=== PATIENT | female | born 1965 | race Caucasian/White ===

== ENCOUNTER 2017-02-03 12:49 | Outpatient (CLI) ==
[2015-08-02 13:25] VITALS: BMI 32.3
--- NOTE | 2017-02-03 13:47 | DI ---
EXAM: Three views of the right hand. History: Right hand pain. Findings: No acute fracture or dislocation. No abnormal calcifications or radiopaque foreign aamir s. Joint spaces are relatively preserved. Impression: No acute osseous abnormality and no significant degenerative joint disease.
--- NOTE | 2017-02-03 13:48 | DI ---
EXAM: Three views of the left hand. History: Left hand pain. Findings: No acute fracture or dislocation. No abnormal calcifications or radiopaque foreign aamir s. Joint spaces are relatively preserved. Impression: Unremarkable exam.
== END 2017-02-03 12:50 | disposition home or self-care (01) ==
LOC: RAD 12:49
PROVIDERS: ATTEND Nurse Practitioner Family
DX: M79.641 Pain in right hand (principal)

== ENCOUNTER 2017-07-30 21:36 | Emergency (ER) ==
[2017-07-30 21:46] VITALS: BP 160/90; TEMP 97.5; BMI 33.9
[2017-07-30] MEDS ORDERED: DECADRON 4 MG/ML SDV IM STA (22:02)
[2017-07-30] MEDS ORDERED: TORADOL IM STA (22:02)
[2017-07-30] MEDS ORDERED: NORFLEX IM STA (22:02)
--- NOTE | 2017-07-30 22:22 | DI ---
Exam: Right ankle 3 views History: Injury and pain Findings/Impression: No acute heather or articular abnormality. There is a 7 mm per on the plantar surf jarod of the calcaneus.
--- NOTE | 2017-07-30 22:25 | DI ---
Exam: Right foot three-view HISTORY: Injury and pain Findings / impression: No acute bony or articular abnormality is seen. There is a 5 x 2 mm bony den sity over the dorsum of the base of the metatarsals most likely chronic. Spurring on the plantar stephanie face of the calcaneus.
[2017-07-30 22:27] LABS: BASOPHILS % (AUTO) 0.5 % (0.0-3.0); EOSINOPHILS # (AUTO) 0.1 K/ul (0.0-0.7); EOSINOPHILS % (AUTO) 1.5 % (0.0-7.0); HEMATOCRIT 36.9 % (37.0-47.0); HEMOGLOBIN 13.1 g/dl (12.0-16.0); IMMATURE GRANULOCYTE % (AUTO) 0.5 % (0.0-5.0); LYMPHOCYTES % (AUTO) 32.1 (10.0-50.0); MEAN CORPUSCULAR HEMOGLOBIN 30.9 pg (27.0-31.0); MEAN CORPUSCULAR HGB CONC 35.5 (31.8-35.4); MONOCYTES # (AUTO) 0.5 K/uL (0.4-2.0); MONOCYTES % (AUTO) 7.8 (0-10); NEUTROPHILS # (AUTO) 3.6 K/ul (2.0-6.9); NEUTROPHILS % (AUTO) 57.6; PLATELET COUNT 203 10^3/uL (140-440); RED BLOOD COUNT 4.24 10^6/ul (4.20-5.40); WHITE BLOOD COUNT 6.16 K/ul (4.6-10.2)
[2017-07-30 22:46] LABS: ALBUMIN 3.9 g/dL (3.4-5.0); ALBUMIN/GLOBULIN RATIO 1.3; ANION GAP 15.7; BILIRUBIN,TOTAL 0.39 mg/dL (0.00-1.20); BUN/CREATININE RATIO 20.27; CALCIUM 9.6 mg/dL (8.2-10.2); CREATININE 0.74 mg/dL (0.60-1.30); MAGNESIUM 2.2 mg/dL (1.7-2.2); POTASSIUM 3.7 mmol/L (3.5-5.10); TOTAL PROTEIN 6.9 g/dL (6.4-8.2); URIC ACID 5.1 mg/dL (2.4-6.0)
[2017-07-30 22:58] LABS: ESR INTERNAL QC INTERNAL QC VALID
[2017-07-30 22:59] LABS: ERYTHROCYTE SEDIMENTATION RATE 6 mm/hr (0-20)
--- NOTE | 2017-07-30 23:15 | ED.PDOC ---
General ED Provider: Dr. JOANNA FRAZIER-ER Chief Complaint: Extremity Swelling/Pain Stated Complaint: i was sitting in a recliner and then my foot and ankle started hurting and i couldnt put any weight on it Time Seen by Physician: 21:40 Mode of Arrival: Walk-In Information Source: Patient, Family Exam Limitations: No limitations Primary Care Provider: VENKATA CHERRY Nursing and Triage Documentation Reviewed and Agree: Yes Musculoskeletal Complaint Exam - Ankle/Foot Complaint/Exam Location of Injury: Reports: Right, Ankle, Foot Mechanism of Injury: Reports: No known trauma Onset/Duration: 30 min Symptoms Are: Reports: Still present Onset of Pain: Reports: Immediate Initial Severity: Mild Current Severity: Mild Location: Reports: Discrete (right ankle foot) Character: Reports: Dull, Aching, Spasmodic Alleviating: Reports: None Aggravating: Reports: Movement, Weight bearing Able to Bear Weight: No Associated Signs and Symptoms: Reports: Bruising. Denies: Swelling, Redness, Fever, Weakness, Numbness, Tingling Related History: Reports: Similar episode Gout Risk Factors: Reports: >40 years old Related Surgical History: Reports: None Lower Extremity Findings: Present: Tenderness, Limited range of motion Achilles Tendon Abnormality: No Tenderness: Present: Lateral malleolus, Midfoot Limited Range of Motion: Present: Inversion, Eversion Differential Diagnosis: Sprain, Strain, Bursitis Review of Systems - Review Of Systems Constitutional: Reports: No symptoms Eyes: Reports: No symptoms Ears, Nose, Mouth, Throat: Reports: No symptoms Respiratory: Reports: No symptoms Cardiac: Reports: No symptoms GI: Reports: No symptoms : Reports: No symptoms Musculoskeletal: Reports: Joint pain, Muscle pain Skin: Reports: No symptoms Neurological: Reports: No symptoms Endocrine: Reports: No symptoms Hematologic/Lymphatic: Reports: No symptoms All Other Systems: Reviewed and Negative Past Medical History - Past Medical History Previously Healthy: Yes Endocrine: Reports: None Cardiovascular: Reports: Hypertension Respiratory: Reports: None Hematological: Reports: None Gastrointestinal: Reports: None Genitourinary: Reports: None Neuro/Psych: Reports: None Musculoskeletal: Reports: Other Cancer: Reports: None Last Menstrual Period: PT HAS HAD A HYSTERECTOMY - Surgical History General Surgical History: Reports: None - Family History Family History: Reports: Unknown - Social History Smoking Status: Former smoker Hx Substance Use: No Alcohol Screening: None Lives: With family - Immunizations Tetanus Shot up to Date: (UNKNOWN) Physical Exam - Physical Exam Appearance: Well-appearing, No pain distress, Well-nourished Pain Distress: Mild Eyes: ROHINI ENT: Ears normal, Nose normal, Oropharynx normal Neck: Supple Respiratory: Airway patent, Breath sounds clear, Breath sounds equal, Respirations nonlabored Cardiovascular: RRR, Pulses normal, No rub, No murmur GI/: Soft, Nontender, No masses, Bowel sounds normal, No Organomegaly Musculoskeletal: Limited ROM Skin: Warm, Dry, Normal color Neurological: Sensation intact Psychiatric: Affect appropriate, Mood appropriate, Anxious Interpretation - Radiology Interpretation Radiology Interpretation By: Radiologist Radiology Results: Negative Re-Evaluation - Re-Evaluation Time of Re-Evaluation: 23:19 Status: Improved (moving much better--able to put weight now on the foot) Vital Signs Stable: Yes Pain Level: 2 Appearance: NAD Lungs: Clear Skin: Warm and Dry Neuro: Alert and Oriented X3 CV: RRR Critical Care Note - Critical Care Note Total Time (mins): 0 Course - Course Hematology/Chemistry: 07/30/17 22:23 07/30/17 22:23 Orders, Labs, Meds: Lab Review 07/30/17 07/30/17 22:23 22:23 WBC 6.16 RBC 4.24 Hgb 13.1 Hct 36.9 L MCV 87.0 MCH 30.9 MCHC 35.5 H RDW Coeff of Mukesh 12.2 Plt Count 203 Immature Gran % (Auto) 0.5 Neut % (Auto) 57.6 Lymph % (Auto) 32.1 [place] % (Auto) 7.8 Eos % (Auto) 1.5 Baso % (Auto) 0.5 Immature Gran # (Auto) 0.0 Neut # 3.6 Lymph # 2.0 [place] # 0.5 Eos # 0.1 Baso # 0.0 ESR 6 Sodium 144 Potassium 3.7 Chloride 110 H Carbon Dioxide 22 Anion Gap 15.7 BUN 15 Creatinine 0.74 Estimated GFR (MDRD) 82.00 BUN/Creatinine Ratio 20.27 Glucose 155 H Uric Acid 5.1 Calcium 9.6 Magnesium 2.2 Total Bilirubin 0.39 AST 17 ALT 16 Alkaline Phosphatase 72 Total Protein 6.9 Albumin 3.9 Globulin 3.0 Albumin/Globulin Ratio 1.30 Orders Category Date Time Status CBC W/ AUTO DIFF Stat LAB 07/30/17 22:23 Completed COMPREHENSIVE METABOLIC PANEL Stat LAB 07/30/17 22:23 Completed CRP [C-REACTIVE PROTEIN] Stat LAB 07/30/17 22:23 Received ESR Stat LAB 07/30/17 22:23 Completed MAGNESIUM Stat LAB 07/30/17 22:23 Completed RHEUMATOID ARTHRITIS FACTOR Stat LAB 07/30/17 22:23 Received URIC ACID Stat LAB 07/30/17 22:23 Completed Dexamethasone 4 mg/ml Inj [Decadron 4 mg/ml Sdv] MEDS 07/30/17 22:02 Discontinued 4 mg IM ONCE STA Ketorolac Tromethamine [Toradol] MEDS 07/30/17 22:02 Discontinued 60 mg IM ONCE STA Orphenadrine Citrate [Norflex] MEDS 07/30/17 22:02 Discontinued 60 mg IM ONCE STA ANKLE, RIGHT MIN 3 VIEWS Stat RADS 07/30/17 22:01 Completed FOOT, RIGHT 3 VIEWS Stat RADS 07/30/17 22:02 Completed Medications Discontinued Medications Generic Name Dose Route Start Last Admin Trade Name Pedrito PRN Reason Stop Dose Admin Dexamethasone Sodium Phosphate 4 mg 07/30/17 22:02 07/30/17 22:19 Decadron 4 Mg/Ml Sdv IM 07/30/17 22:03 4 mg ONCE STA Administration Ketorolac Tromethamine 60 mg 07/30/17 22:02 07/30/17 22:20 Toradol IM 07/30/17 22:03 60 mg ONCE STA Administration Orphenadrine Citrate 60 mg 07/30/17 22:02 07/30/17 22:21 Norflex IM 07/30/17 22:03 60 mg ONCE STA Administration Vital Signs: Temp Pulse Resp BP Pulse Ox 07/30/17 21:37 97.5 F L 97 H 20 160/90 H 99 Departure - Departure Time of Disposition: 23:19 Disposition: HOME SELF-CARE Discharge Problem: Ankle pain Qualifiers: Chronicity: acute Laterality: unspecified laterality Qualified Code(s): M25.579 - Pain in unspecified ankle and joints of unspecified foot Instructions: Swollen Joint (ED), Tendinitis (ED) Condition: Good Pt referred to PMD for follow-up: Yes Additional Instructions: ice and elevation--motrin for pain--f/u with pcp tomorrow if not completely better Allergies/Adverse Reactions: Allergies No Known Allergies Allergy (Verified 07/30/17 22:01) Disposition Discussed With: Patient, Family
== END 2017-07-30 23:26 | disposition home or self-care (01) ==
LOC: ED 21:36
DX: M25.571 Pain in right ankle and joints of right foot (principal); I10 Essential (primary) hypertension
CPT/HCPCS: 36415; 80053; 83735; 84550; 85025; 85651; 86140; 86430; 96372; 99284

== ENCOUNTER 2017-09-30 13:20 | Outpatient (CLI) ==
[2017-09-30 15:18] LABS: CHOL/HDL RATIO 3.5 (4.5-5.5)
== END 2017-09-30 13:21 | disposition home or self-care (01) ==
LOC: LAB 13:20
PROVIDERS: ATTEND Nurse Practitioner Family
DX: Z00.00 Encounter for general adult medical examination without abnormal findings (principal); Z13.220 Encounter for screening for lipoid disorders
CPT/HCPCS: 36415; 80061; 82947